=== PATIENT | female | born 1945 | race Caucasian/White ===

== ENCOUNTER 2016-10-09 07:53 | Day surgery (SDC) | payer MEDICARE, OTHER ==
--- NOTE | 2016-10-04 21:04 | HP ---
Chief Complaint - Chief Complaint Date of Service: 10/04/16 Chief Complaint: Have a breast cancer History of Present Illness: 71 year old female who was noted on routine mammogram (last one about 5 years ago) to have a small (<1cm) abnormality on the right breast that also was suspicious on US. A core biopsy revealed infiltrating ductal carcinoma. (Path report reviewed) She is low risk, no family history and normal Deepali score. No injury. No mass. No tenderness. No nipple discharge. No previous biopsies. Nonsmoker. No night sweats or weight loss. - Patient's Past Medical History Patient History - Cardiac/Respiratory: Hypertension, Hyperlipidemia Patient History - Cancer: No Hx of Cancer Patient History - Surgical Procedures: Back Surgery, Cholecystectomy, Gastric Bypass - lap band 11 years ago, Tubal Ligation, Orthopedic - partial knee 12 years ago LMP (females 10-50): Menopausal - Family History Family History:: no untoward family reactions to anesthesia, no familial bleeding tendencies, no family history of clotting disorders, no family history of premature - Family History Mother Family History - Medical: Family History - Cancer: Other - uterine - Social History Living Situations: spouse Abuse History: No History of abuse Psych History: No pertinent hx Does anyone smoke in the home?: No Smoking Status: Former smoker - quit 1992 Have you smoked in the past 12 months: No Alcohol Use: occasionally Drug Use: none - Immunizations Immunizations Up to Date: Yes Hx Pneumococcal Vaccination: Yes History of Influenza Vaccine: Yes Review Of Systems (GEN) - Review of Systems Generalized/Overall Review: Absent: Weakness, Chills, Fever, Malaise EENTM: Present: No Symptoms Reported Respiratory: Absent: Cough, Shortness of Breath, Orthopnea, Wheezing Cardiac: Absent: Chest Pain, Edema, Palpitations Abdominal: Absent: Nausea, Vomiting, Abdominal Pain, Constipation, Diarrhea Genitourinary: Absent: Burning, Urgency, Frequency Musculoskeletal: Absent: Joint Pain, Back Pain, Joint Swelling Neurological: Absent: Headache, Anxiety, Depressed, Emotional Problems Skin: Absent: Dryness, Lesions, Lumps Endocrine: Present: No Symptoms Reported Allergies/Adverse Reactions: Allergies Allergy/AdvReac Type Severity Reaction Status Date / Time No Known Allergies Allergy Verified 10/04/16 20:54 Home Medications: HOME MEDICATIONS Escitalopram Oxalate [Lexapro] 10 mg PO DAILY 10/04/16 [Last Taken Unknown] Simvastatin [Zocor] 10 mg PO DAILY 10/04/16 [Last Taken Unknown] Spironolact/Hydrochlorothiazid [Aldactazide 25-25] 1 tab PO HS 10/04/16 [Last Taken Unknown] diphenhydrAMINE HCL [Benadryl] 25 mg PO 10/04/16 [Last Taken Unknown] Exam - Exam Vital Signs: HT 5'5 WT 225# HR 65 Temp 36.7 C RR 14 BP 130/75 Constitutional: Present: Alert, Oriented x3, Cooperative, No distress, Overweight ENT Exam: Present: normal ENT inspection, hearing grossly normal Neck: Present: non-tender, full range of motion, supple, normal inspection Breasts: Present: Nontender, Other - no massses bilaterally Respiratory: Present: lungs clear, normal breath sounds, no respiratory distress Cardiovascular/Chest: Present: normal peripheral pulses, regular rate, rhythm, no edema, no gallop, no murmur Abdomen: Present: Normal bowel sounds, soft, nontender /Rectal: Present: Exam deferred Extremity: Present: normal range of motion, normal inspection Skin Exam: Present: normal color, warm/dry Lymphatic: Present: no adenopathy Neurologic: Present: no motor/sensory deficits, alert, normal mood/affect, oriented x 3 Appearance: Present: appropriate appearance, appropriate insight, no memory impairment Eye contact: Present: cooperative, good eye contact, normal speech Thoughts: Present: normal thought pattern Assessment/Plan - Narrative Narrative: Mammograms and US reviewed with patient and . RBIC discussed for a lumpectomy and Wendell Lymph node excision. We discussed mastectomy. We discussed the procedure for lymphocintigraphy and wire localization because this is a non palpable lesion. Clip was apparently placed with biopsy. DCIS discussed and the need for oncology referral after the procedure and final path returns. She understands and agrees. - Assessment/Plan (1) Breast cancer Problem: Acute Qualifiers: Breast location: upper outer quadrant of breast Patient sex: female Laterality: right Qualified Code(s): C50.411 - Malignant neoplasm of upper- outer quadrant of right female breast
[~2016-10-09 07:53] MED LIST: RINGERS SOLUTION,LACTATED 1,000 ML IV PRN; ceFAZolin SODIUM 2 GM in DEXTROSE 5 % IN WATER 50 ML IV PRN
--- OUTSIDE RECORDS SUMMARY | 2016-10-09 07:57 | XMS REPORT | Continuity of Care Document ---
:1945 Demographics Phone Unavailable Preferred Language Unknown Marital Status Unknown Druze Affiliation Unknown Race Unknown Ethnic Group Unknown Author Organization [facility] [place] [address] Care Team Providers Name Role Phone Unavailable Primary Care Provider Unavailable Source Comments This disclosure is being made pursuant to the [employer] program and maynot contain all information available regarding this patient.[facility] Active Allergies and Adverse Reactions Not on File Current Medications Be aware that medications may not be up to date as of this document. Alwaysverify current medications with the patient. Not on file Active Problems Not on file Social History Tobacco Use Types Packs/Day Years Used Date Never Assessed Plan of Care Health Maintenance Due Date Last Done Comments Retired-Pertussis Vaccine Adult 1964 Retired-Tetanus Vaccine Adult 1964 Mammogram 1985 Colonoscopy 1995 Well Adult Visit 1995 Zoster Vaccine 60+ 2005 Bone Density 2010 Retired-Pneumococcal 23 Vaccine-65+ yo 2010 Retired-INFLUENZA VACCINE 03/01/2015 Results from Last 3 Months Not on file
--- OUTSIDE RECORDS SUMMARY | 2016-10-09 07:57 | XMS REPORT | Continuity of Care Document ---
:1945 Author [facility] [place] [address] Phone [phone] Care Team Providers Name Role Phone Imtiaz Pacheco Primary Care Provider [phone] Active Allergies and Adverse Reactions No Known Allergies Current Medications Always verify current medications with the patient because some medications mayno longer be current as of this document. Prescription Sig. Disp. Refills Start Date End Date Status escitalopram (LEXAPRO) 10 Take 10 mg by Active MG tablet mouth daily. spironolactone (ALDACTONE) Take 25 mg by Active 25 MG tablet mouth daily. allopurinol (ZYLOPRIM) 100 Take 200 mg by Active MG tablet mouth daily. simvastatin (ZOCOR) 20 MG Take 20 mg by Active tablet mouth nightly. ezetimibe (ZETIA) 10 MG Take 10 mg by Active tablet mouth daily. takes 2 days per week, Saturday & ; diphenhydrAMINE (BENADRYL) Take 25 mg by Active 25 MG tablet mouth every 6 hours as needed for Sleep. ibuprofen (MOTRIN) 600 MG Take 600 mg by Active tablet mouth every 6 hours as needed for Pain. Active Problems No known active problems Social History Tobacco Use Types Packs/Day Years Used Date Former Smoker Smokeless Tobacco: Never Used Alcohol Use Drinks/Week oz/Week Comments Yes daily wine; Last Filed Vital Signs Vital Sign Reading Time Taken Blood Pressure 121/63 06/01/2015 10:47 AM [employer]UCATION PROGRAM SPECIALIST Pulse 68 06/01/2015 10:47 AM [employer]UCATION PROGRAM SPECIALIST Temperature 36.6 C (97.9 F) 06/01/2015 9:05 AM [employer]UCATION PROGRAM SPECIALIST Respiratory Rate 18 06/01/2015 9:05 AM [employer]UCATION PROGRAM SPECIALIST Height 1.651 m (5' 5") 05/18/2015 12:01 AM EDUCATION PROGRAM SPECIALIST Weight 110.224 kg (243 lb) 05/18/2015 12:01 AM EDUCATION PROGRAM SPECIALIST Body Mass Index 40.44 05/18/2015 12:01 AM EDUCATION PROGRAM SPECIALIST Oxygen Saturation 95% 06/01/2015 9:05 AM EDUCATION PROGRAM SPECIALIST Plan of Care Health Maintenance Due Date Last Done Comments [facility] Bmi Screening And Follow 1945 Up [facility] Dtap/Tdap/Td Vaccines (1 - 1964 Tdap) [facility] Breast Cancer Screening 1985 [facility] Colon Cancer Screening 1995 [facility] Zoster (#1) 2005 [facility] Pneumococcal Low Risk 2010 Adult (1 of 2 - PCV13) [facility] Influenza 01/29/2017 [facility] Pneumococcal Pcv7/13 0-5 Aged Out No longer eligible based on Yrs patient's age to complete this topic Results from Last 3 Months Not on file
--- OUTSIDE RECORDS SUMMARY | 2016-10-09 07:57 | XMS REPORT | Continuity of Care Document ---
:1945 Demographics Phone Unavailable Preferred Language Unknown Marital Status Unknown Advent Affiliation Unknown Race Unknown Ethnic Group Unknown Author Organization [facility] ([facility]) Address [address] [place] [address] Phone [phone] Care Team Providers Name Role Phone Unavailable Primary Care Provider Unavailable Source Comments This disclosure is being made pursuant to the Care Everywhere program, applicable federal and state laws, and may not contain all informaitonavailable regarding this patient.[facility] ([facility]) Active Allergies and Adverse Reactions Not on File Current Medications Not on file Active Problems Not on file Most Recent Encounters Date Type Specialty Providers Description 09/28/2016 Lab Requisition Pathology [facility] Dx: Neoplasm of breast Social History Tobacco Use Types Packs/Day Years Used Date Never Assessed Plan of Care Health Maintenance Due Date Last Done Comments HCV Screening 1945 Hepatitis B Vaccine (1 of 3 - Primary Series) 1945 Tdap Vaccine 1956 Lipid Disorder Screening 1963 Td Vaccine 1963 Mammogram 1985 Colonoscopy 1995 Zoster Vaccine 2005 Osteoporosis Screening (DXA Bone Density) 2010 Pneumococcal Vaccine (1 of 2 - PCV13) 2010 Influenza Vaccine: Seasonal Completed Results from Last 3 Months SURGICAL PATHOLOGY EXAM (09/26/2016 8:39 AM) Component Value Range Case Report Surgical Pathology Case: [id number] Authorizing Provider:[facility] Collected: 09/26/2016 08:39 AM Pathologist: Jennifer iKllian MDReceived: 09/28/2016 08:39 AM Specimen:Outside material, 2 slides and 1 block labeled 17-[id number] Diagnosis Right breast mass, core needle biopsies (17-T-1292; 09/26/16): Invasive ductal carcinoma, Julianna-Huertas grade 1/3, 0.8 cm in greatest linear extent. Low grade ductal carcinoma in situ, cribriform pattern. Tumor cells positive for estrogen and progesterone receptors (each > 95%) and negative for Her-2/shelley (0). Clinical Information 71 year old woman with a right breast mass. Microscopic Description Reviewed are two H and E stained slides, both labeled 17-T-1292, with the accompanying preliminary pathology report.A p63 immunostain, performed at [facility], confirms the absence of myoepithelial cell s around the neoplastic glands. Microscopic examination performed and supports the diagnosis. Performed by: Milagros Munoz M.D., R4 IHC Section IHC: All controls show appropriate reactivity. This test was developed and its performance characteristics determined by the immunopathology Laboratory at the [facility]. It has not been cleared or approved by the US Food and Drug Administration.FDA does not require this test to go through premarket FDA review.This test is used for clinical purposes.It should not be regarded as investigational or fo r research. This laboratory is certified under the Clinical Laboratory Improvement Amendments (CLIA) as qualified to perform high complexity clinical laboratory testing. Immunohistochemistry for estrogen receptor (rabbit monoclonal antibody SP1) and progesterone receptor (mouse monoclonal antibody [id number]) are performed on formalin-fixed, paraffin-embedded tissue sections, utilizing a polymer-based detection system. According to ASCO/CAP guidelines, cases with > or=1% nuclear staining are considered POSITIVE. Reference: Liliane CARRANZA, et al. Indian Society of Clinical Oncology/College of Indian Pathologists guideline recommendations for immunohistochemical testing of estrogen and progesterone receptors in breast cancer. Arch Pathol Lab Med. 2010 Javier;134(6):907-22. HER2 immunohistochemistry is performed on formalin-fixed, paraffin-embedded tissue sections from at least one tumor sample from all patients with breast cancer (i.e., early-stage, recurrent, or metast atic disease) using the rabbit monoclonal antibody SP3 and a polymer-based detection system. HER2 testing should be repeated on another specimen or block if: 1. the initial HER2 result is discordant with the histologic features of the tumor, 2. in a core biopsy, the initial result is negative and the amount of tumor tested is limited, or 3. in a core biopsy, the result is equivocal by IHC and LUCY. Cases are scored according to the 2013 ASCO/CAP HER2 guidelines as follows: Score 0: No staining OR incomplete membrane staining that is faint/barely perceptible in <=10% of tumor cells Score 1+: Incomplete membrane staining that is faint/barely perceptible in > 10% of tumor cells Score 2+: Membrane staining that is incomplete and/or weak/moderate in >10% of tumor cells OR complete, intense, circumferential membrane staining in <=10% of tumor cells Score 3+: Circumferential membrane staining that is complete and intense in > 10% of tumor cells Reference: Juan Manuel MCDONALD, et al. Recommendations for human epidermal growth factor receptor 2 testing in breast cancer: Indian Society of Clinical Oncology/College of Indian Pathologists clinical practice guidelines update. Arch Pathol Lab Med. 2014;138:241-56. Breast ER interpretation Positive Breast ER intensity 3+ Breast ER extent (%) >95 % Breast [place] interpretation Positive Breast NY intensity 3+ Breast [place] extent (%) >95 % Breast HER2 interpretation Negative (0) Breast cold ischemia time 10 0-60 minutes (minutes) Breast fixation time (hours) 72 6-72 hours Specimen Tissue - Outside material
[2016-10-09] MEDS ORDERED: RINGERS SOLUTION,LACTATED 1,000 ML IV ONE ×2 (08:26→12:10)
[2016-10-09] MEDS ORDERED: BUPIVACAINE HCL/EPINEPHRINE 50 ML VIAL IJ ONE (11:40)
[2016-10-09] MEDS ORDERED: LIDOCAINE HCL/EPINEPHRINE 30 ML VIAL IJ ONE (12:15)
[2016-10-09] MEDS ORDERED: oxyCODONE HCL/ACETAMINOPHEN 1 TAB TABLET PO PRN (12:56)
[2016-10-09] MEDS ORDERED: MORPHINE SULFATE 2 MG/ML DISP.SYRIN IV PRN (12:56)
[2016-10-09] MEDS ORDERED: RINGERS SOLUTION,LACTATED 1,000 ML IV PRN (12:56)
[2016-10-09] MEDS ORDERED: ONDANSETRON HCL/PF 2 MG/ML VIAL IV ONE (13:15)
--- NOTE | 2016-10-09 13:15 | OR ---
Operative Report - Dictated Report Narrative: DATE OF PROCEDURE: 10/09/2016 SURGEON: Dat Cotto M.D. FACS WEB FEEDER: None ANESTHESIA: Irene Mercado CRNA general PREOPERATIVE DIAGNOSIS: Right breast cancer POSTOPERATIVE DIAGNOSIS: Same OPERATION: Right wire localization lumpectomy and sentinel lymph node excision INDICATIONS: This is a 71 -year-old female who presents with a abnormal mammogram, biopsy proven infiltrating ductal carcinoma of the right breast, and a nonpalpable lesion. Risks, benefits, indications, contraindications were discussed with the patient for a wire localization and lymphoscintigraphy in radiology, and then a lumpectomy and sentinel lymph node excision in the operating room, and she understood, agreed and wished to proceed. FINDINGS: 2 "hot" lymph nodes in axilla noted on the neoprobe and excised. On radiographic examination the specimen revealed the clip was close to the edge of the specimen, however multiple additional tissue specimens were sent as margins, and I feel confident all abnormal tissue was removed. PROCEDURE: The patient was brought to the operating room after returning from radiology suite, where the wire was placed under ultrasound guidance, and lymphoscintigraphy was performed. Both reviewed with the radiologist and patient tolerated well. Once in the afternoon, she underwent a general anesthesia. Her right breast and chest wall were prepped and draped in a standard fashion. An appropriate TIMEOUT was performed. The wire was located in the 10 o'clock position, nearly directly over the clip, and therefore an elliptical incision was made incorporating the wire. Using electrocautery a wide swath of tissue was removed around the wire circumferentially. Hemostasis was achieved using the left cautery. Once the specimen was removed, it was sent to radiology where a image was performed, revealing that the tip of the wire and clip were near the margin a specimen. The wound was infiltrated with 0.5% Marcaine plus epinephrine. Using a curved Mayos, margins were excised, including 2 additional margins,one was a "superior medial" and one "superior posterior" along with the standard medial, lateral, superior, inferior, and posterior. Gauze was then placed into the wound. A small incision was made in the lower hairline of the right axilla. Dissection continued down through the subcutaneous tissue and fatty tissue elect cautery. The clavipectoral fascia was encountered and opened. The neoprobe was then used to interrogate the axilla. The "hot" area was found and excised using a small hand-held LigaSure device. This initial lymph node measured 21,000 on the neoprobe. It was sent off as specimen. The axilla was then interrogated and additional hot area was noted and a second lymph node was removed using the LigaSure. This measured 23,000 on the neoprobe. It was sent off as a second sentinel lymph node. There was good hemostasis, and the wound was infiltrated with 1% Xylocaine plus epinephrine. The skin was closed with a subcuticular 4-0 Vicryl. The lumpectomy wound was then examined and had good hemostasis. There was no other suspicious areas were residual Omer blue staining, and therefore the subcutaneous tissue was closed with interrupted 2-0 Vicryl, and the skin was closed with a running subcuticular 4-0 Vicryl. Steri-Strips were placed on both incisions and a dressing was applied. Patient was awakened. POSTOPERATIVE CONDITION: She went to recovery in good condition. Estimated blood loss: <25mls Specimen: 10 Drains:None Findings are discussed with the patient's . Later the patient also received the same information.
[2016-10-09 14:30] VITALS: BP 143/62
== END 2016-10-09 07:54 | disposition home or self-care (01) ==
LOC: AMB 07:53
PROVIDERS: ATTEND Surgery
PROC: 07B50ZX Excision of Right Axillary Lymphatic, Open Approach, Diagnostic (ICD-10-PCS; 2016-10-09)
PROC: 0HBT0ZZ Excision of Right Breast, Open Approach (ICD-10-PCS; principal; 2016-10-09 10:35)
DX: C50.911 Malignant neoplasm of unspecified site of right female breast (principal); I10 Essential (primary) hypertension; E78.5 Hyperlipidemia, unspecified; Z87.891 Personal history of nicotine dependence; Z68.37 Body mass index [BMI] 37.0-37.9, adult
CPT/HCPCS: 19301; 38525; 76098; 76942; 78195; 88307; 88341; 88342; A9541; G0206; G0279